=== PATIENT | male | born 1955 | race Caucasian/White ===

== ENCOUNTER 2022-08-21 18:40 | Inpatient (IN) | payer MEDICARE ==
[~2022-08-21] VITALS: Ht 182.9 cm; Wt 99.0 kg
[2022-08-21 20:57] VITALS: BP 126/75
[2022-08-22 03:31] VITALS: BP 102/64
[2022-08-22 05:46] LABS: HEMATOCRIT 36.9 % (39.0-50.0); IMMATURE GRANULOCYTES 0.1 % (0.0-5.0); MEAN CELL VOLUME 101.1 fL CALC (80.0-100.0); MEAN CORPUSCULAR HGB 35.6 pG CALC (26.0-32.0); MEAN CORPUSCULAR HGB CONC 35.2 g/dL CAL (32.0-36.0); NEUT# 3.91 thou/uL (1.82-7.42); RED BLOOD COUNT 3.65 mill/uL (4.70-6.10); RED CELL DISTRI WIDTH 13.2 % (11.5-15.5)
[2022-08-22 06:10] LABS: ALKALINE PHOSPHATASE 52 u/l (38-126); ANION GAP 12 (6-22 (CALC)); BILIRUBIN, TOTAL 1.2 mg/dL (0.0-1.4); BUN 19 mg/dL (8-23); BUN/CREATININE RATIO 27 (12-20 (CALC)); CARBON DIOXIDE 30 mmol/l (22-30); CHLORIDE 102 mmol/l (95-108); CREATININE 0.7 mg/dL (0.7-1.3); GFR FOR AFR.AMER. > 60 ML/MIN (>=60 (CALC)); GFR OTHER RACES > 60 ML/MIN (>=60 (CALC)); POTASSIUM 3.2 mmol/l (3.5-5.1); SGOT/AST 27 u/l (19-48); SODIUM 141 mmol/l (137-146); TOTAL PROTEIN 6.3 g/dL (6.3-8.2)
[2022-08-22 06:35] VITALS: BP 102/58
[2022-08-22] MEDS ORDERED: AMARYL4 MG PO (13:36)
[2022-08-22] MEDS ORDERED: XARELTO20 MG PO (13:37)
[2022-08-22] MEDS ORDERED: METFORMIN HYD1000 MG PO (13:38)
[2022-08-22] MEDS ORDERED: TOPROL XL50 MG PO (13:40)
[2022-08-22] MEDS ORDERED: NORVASC PO (13:41)
[2022-08-22] MEDS ORDERED: LIPITOR40 M1 PO (13:42)
[2022-08-22] MEDS ORDERED: LYRICA150 MG PO (13:43)
[2022-08-22] MEDS ORDERED: JARDIANCE25 MG PO (13:44)
[2022-08-22] MEDS ORDERED: LISINOP/HCTZ1 TA2 PO (13:45)
[2022-08-22] MEDS ORDERED: HYDROCO/APAP1 TA9 PO (13:47)
[2022-08-22 14:37] VITALS: BP 119/93
[2022-08-22 19:03] VITALS: BP 138/95
[2022-08-23 03:43] VITALS: BP 98/66
[2022-08-23 06:07] LABS: HEMATOCRIT 37.4 % (39.0-50.0); HEMOGLOBIN 13.2 g/dl (14.0-18.0); MEAN CELL VOLUME 100.8 fL CALC (80.0-100.0); MEAN CORPUSCULAR HGB 35.6 pG CALC (26.0-32.0); MEAN CORPUSCULAR HGB CONC 35.3 g/dL CAL (32.0-36.0); RED BLOOD COUNT 3.71 mill/uL (4.70-6.10)
[2022-08-23 06:17] VITALS: BP 112/74
[2022-08-23 06:22] LABS: ALKALINE PHOSPHATASE 67 u/l (38-126); ANION GAP 11 (6-22 (CALC)); BILIRUBIN, TOTAL 0.9 mg/dL (0.0-1.4); BUN 17 mg/dL (8-23); BUN/CREATININE RATIO 22 (12-20 (CALC)); CARBON DIOXIDE 30 mmol/l (22-30); CHLORIDE 105 mmol/l (95-108); CREATININE 0.8 mg/dL (0.7-1.3); GFR FOR AFR.AMER. > 60 ML/MIN (>=60 (CALC)); GFR OTHER RACES > 60 ML/MIN (>=60 (CALC)); POTASSIUM 3.7 mmol/l (3.5-5.1); SGOT/AST 24 u/l (19-48); SODIUM 141 mmol/l (137-146); TOTAL PROTEIN 6.3 g/dL (6.3-8.2)
[2022-08-23 15:14] VITALS: BP 102/71
[2022-08-23 16:00] VITALS: BP 102/71
[2022-08-23 19:00] VITALS: BP 124/75
[2022-08-23 19:28] VITALS: BP 124/75
[2022-08-24 03:54] VITALS: BP 117/73
[2022-08-24 07:53] VITALS: BP 106/73
[2022-08-24 15:51] VITALS: BP 133/80
[2022-08-24 18:26] VITALS: BP 122/73
[2022-08-25 04:06] VITALS: BP 101/51
[2022-08-25 05:13] LABS: HEMATOCRIT 35.8 % (39.0-50.0); HEMOGLOBIN 12.3 g/dl (14.0-18.0); IMMATURE GRANULOCYTES 0.2 % (0.0-5.0); MEAN CELL VOLUME 101.1 fL CALC (80.0-100.0); MEAN CORPUSCULAR HGB 34.7 pG CALC (26.0-32.0); MEAN CORPUSCULAR HGB CONC 34.4 g/dL CAL (32.0-36.0); NEUT# 3.48 thou/uL (1.82-7.42); RED BLOOD COUNT 3.54 mill/uL (4.70-6.10); RED CELL DISTRI WIDTH 13.1 % (11.5-15.5)
[2022-08-25 05:45] LABS: ANION GAP 8 (6-22 (CALC)); BUN 11 mg/dL (8-23); BUN/CREATININE RATIO 17 (12-20 (CALC)); CARBON DIOXIDE 28 mmol/l (22-30); CHLORIDE 108 mmol/l (95-108); CREATININE 0.6 mg/dL (0.7-1.3); GFR FOR AFR.AMER. > 60 ML/MIN (>=60 (CALC)); GFR OTHER RACES > 60 ML/MIN (>=60 (CALC)); MAGNESIUM 1.8 mg/dL (1.6-2.3); POTASSIUM 3.6 mmol/l (3.5-5.1); SODIUM 140 mmol/l (137-146)
[2022-08-25 06:15] VITALS: BP 108/59
[2022-08-25 14:36] VITALS: BP 109/68
[2022-08-25 18:57] VITALS: BP 132/73
[2022-08-26] VITALS (11 sets, daily range): BP systolic 107–164; BP diastolic 58–91
[2022-08-26 04:02] LABS: HEMATOCRIT 34.4 % (39.0-50.0); IMMATURE GRANULOCYTES 0.6 % (0.0-5.0); MEAN CELL VOLUME 100.9 fL CALC (80.0-100.0); MEAN CORPUSCULAR HGB 35.2 pG CALC (26.0-32.0); MEAN CORPUSCULAR HGB CONC 34.9 g/dL CAL (32.0-36.0); NEUT# 2.52 thou/uL (1.82-7.42); RED BLOOD COUNT 3.41 mill/uL (4.70-6.10); RED CELL DISTRI WIDTH 12.9 % (11.5-15.5)
[2022-08-26 04:18] LABS: ALBUMIN 3.7 g/dL (3.2-5.0); ALKALINE PHOSPHATASE 74 u/l (38-126); ANION GAP 8 (6-22 (CALC)); BUN 11 mg/dL (8-23); BUN/CREATININE RATIO 17 (12-20 (CALC)); CARBON DIOXIDE 28 mmol/l (22-30); CHLORIDE 107 mmol/l (95-108); CREATININE 0.7 mg/dL (0.7-1.3); GFR FOR AFR.AMER. > 60 ML/MIN (>=60 (CALC)); GFR OTHER RACES > 60 ML/MIN (>=60 (CALC)); POTASSIUM 3.4 mmol/l (3.5-5.1); SGOT/AST 24 u/l (19-48); SODIUM 140 mmol/l (137-146); TOTAL PROTEIN 6.3 g/dL (6.3-8.2)
[2022-08-26 04:19] LABS: BILIRUBIN, TOTAL 0.5 mg/dL (0.0-1.4)
[2022-08-27 04:30] VITALS: BP 140/86
[2022-08-27 05:55] LABS: HEMATOCRIT 34.4 % (39.0-50.0); HEMOGLOBIN 11.8 g/dl (14.0-18.0); IMMATURE GRANULOCYTES 0.2 % (0.0-5.0); MEAN CELL VOLUME 101.5 fL CALC (80.0-100.0); MEAN CORPUSCULAR HGB 34.8 pG CALC (26.0-32.0); MEAN CORPUSCULAR HGB CONC 34.3 g/dL CAL (32.0-36.0); NEUT# 3.5 thou/uL (1.82-7.42); RED BLOOD COUNT 3.39 mill/uL (4.70-6.10); RED CELL DISTRI WIDTH 13.3 % (11.5-15.5)
[2022-08-27 06:07] LABS: ALBUMIN 3.5 g/dL (3.2-5.0); ALKALINE PHOSPHATASE 55 u/l (38-126); ANION GAP 9 (6-22 (CALC)); BILIRUBIN, TOTAL 0.7 mg/dL (0.0-1.4); BUN 6 mg/dL (8-23); BUN/CREATININE RATIO 11 (12-20 (CALC)); CARBON DIOXIDE 26 mmol/l (22-30); CHLORIDE 111 mmol/l (95-108); CREATININE 0.6 mg/dL (0.7-1.3); GFR FOR AFR.AMER. > 60 ML/MIN (>=60 (CALC)); GFR OTHER RACES > 60 ML/MIN (>=60 (CALC)); POTASSIUM 3.2 mmol/l (3.5-5.1); SGOT/AST 26 u/l (19-48); SODIUM 142 mmol/l (137-146); TOTAL PROTEIN 6.1 g/dL (6.3-8.2)
[2022-08-27 06:35] VITALS: BP 140/86
[2022-08-27 14:36] VITALS: BP 138/74
[2022-08-27 19:17] VITALS: BP 141/95
[2022-08-27 23:46] VITALS: BP 128/73
[2022-08-28 03:39] VITALS: BP 140/81
[2022-08-28 03:42] LABS: HEMATOCRIT 33.5 % (39.0-50.0); HEMOGLOBIN 11.7 g/dl (14.0-18.0); IMMATURE GRANULOCYTES 0.3 % (0.0-5.0); MEAN CELL VOLUME 101.2 fL CALC (80.0-100.0); MEAN CORPUSCULAR HGB 35.3 pG CALC (26.0-32.0); MEAN CORPUSCULAR HGB CONC 34.9 g/dL CAL (32.0-36.0); NEUT# 3.36 thou/uL (1.82-7.42); RED BLOOD COUNT 3.31 mill/uL (4.70-6.10); RED CELL DISTRI WIDTH 13.3 % (11.5-15.5)
[2022-08-28 04:02] LABS: ALBUMIN 3.6 g/dL (3.2-5.0); ALKALINE PHOSPHATASE 61 u/l (38-126); ANION GAP 10 (6-22 (CALC)); BILIRUBIN, TOTAL 0.6 mg/dL (0.0-1.4); BUN 7 mg/dL (8-23); BUN/CREATININE RATIO 12 (12-20 (CALC)); CARBON DIOXIDE 28 mmol/l (22-30); CHLORIDE 109 mmol/l (95-108); CREATININE 0.6 mg/dL (0.7-1.3); GFR FOR AFR.AMER. > 60 ML/MIN (>=60 (CALC)); GFR OTHER RACES > 60 ML/MIN (>=60 (CALC)); POTASSIUM 3.3 mmol/l (3.5-5.1); SGOT/AST 26 u/l (19-48); SODIUM 144 mmol/l (137-146); TOTAL PROTEIN 6.2 g/dL (6.3-8.2)
[2022-08-28 07:02] VITALS: BP 158/93
[2022-08-28] MEDS ORDERED: HYDROCO/APAP1 TA9 PO (10:18)
[2022-08-28] MEDS ORDERED: VIBRAMYCIN100 M2 PO (10:19)
[2022-08-28 10:43] VITALS: BP 133/86
== END 2022-08-28 13:20 | disposition home or self-care (01) | DRG 629 ==
LOC: MS2 18:40
PROVIDERS: Internal Medicine; Nurse Practitioner Family; ADMIT Internal Medicine; ATTEND Internal Medicine
PROC: 0QBP0ZZ Excision of Left Metatarsal, Open Approach (ICD-10-PCS; principal; 2022-08-26)
PROC: 0QBP0ZZ Excision of Left Metatarsal, Open Approach (ICD-10-PCS; 2022-08-26)
PROC: 0J9R0ZZ Drainage of Left Foot Subcutaneous Tissue and Fascia, Open Approach (ICD-10-PCS; 2022-08-26)
DX: E11.621 Type 2 diabetes mellitus with foot ulcer (principal); I48.19 Other persistent atrial fibrillation; L03.116 Cellulitis of left lower limb; L97.428 Non-pressure chronic ulcer of left heel and midfoot with other specified severity; L02.612 Cutaneous abscess of left foot; E11.628 Type 2 diabetes mellitus with other skin complications; E11.610 Type 2 diabetes mellitus with diabetic neuropathic arthropathy; E11.42 Type 2 diabetes mellitus with diabetic polyneuropathy; I10 Essential (primary) hypertension; J44.9 Chronic obstructive pulmonary disease, unspecified; I49.5 Sick sinus syndrome; G47.33 Obstructive sleep apnea (adult) (pediatric); E78.5 Hyperlipidemia, unspecified; B95.61 Methicillin susceptible Staphylococcus aureus infection as the cause of diseases classified elsewhere; Z95.0 Presence of cardiac pacemaker; Z79.01 Long term (current) use of anticoagulants; Z79.84 Long term (current) use of oral hypoglycemic drugs; Z20.822 Contact with and (suspected) exposure to COVID-19
CPT/HCPCS: J0131; J0692; J1650; J2060; Q9967

== ENCOUNTER 2022-11-17 11:00 | Day surgery (SDC) | payer MEDICARE ==
[~2022-11-17] VITALS: Ht 182.9 cm; Wt 95.3 kg
[~2022-11-17 11:00] MED LIST: AMARYL4 MG PO; HYDROCO/APAP1 TA9 PO; JARDIANCE25 MG PO; LIPITOR40 M1 PO; LISINOP/HCTZ1 TA2 PO; LYRICA150 MG PO; METFORMIN HYD1000 MG PO; NORVASC PO; TOPROL XL50 MG PO; VIBRAMYCIN100 M2 PO; XARELTO20 MG PO
[2022-11-17 14:51] VITALS: BP 126/86
== END 2022-11-17 14:35 | disposition home or self-care (01) ==
LOC: ENDO 11:00 → ORM 16:05
PROVIDERS: ATTEND Internal Medicine Gastroenterology
PROC: 0DJD8ZZ Inspection of Lower Intestinal Tract, Via Natural or Artificial Opening Endoscopic (ICD-10-PCS; principal; 2022-11-17)
DX: Z12.11 Encounter for screening for malignant neoplasm of colon (principal); K64.8 Other hemorrhoids; I10 Essential (primary) hypertension; E11.42 Type 2 diabetes mellitus with diabetic polyneuropathy; I48.19 Other persistent atrial fibrillation; E78.5 Hyperlipidemia, unspecified; G47.33 Obstructive sleep apnea (adult) (pediatric); Z79.84 Long term (current) use of oral hypoglycemic drugs; Z95.0 Presence of cardiac pacemaker; Z79.01 Long term (current) use of anticoagulants; Z86.010 Personal history of colon polyps

== ENCOUNTER 2024-04-18 12:22 | Inpatient (IN) | payer MEDICARE ==
[~2024-04-18] VITALS: Ht 182.9 cm; Wt 101.0 kg
[~2024-04-18 12:22] MED LIST changes: -AMARYL4 MG PO; +CARTIA XT180 MG PO; +CIALIS5 MG PO; +ERTAPENEM1 G1 IV; +GLIMEPIRIDE4 MG PO; +ISORDIL10 MG PO; +KEFLEX500 MG PO; +LEVOFLOXAC500 MG/101 IV; +LEVOFLOXACIN750 MG PO; -LISINOP/HCTZ1 TA2 PO; +LISINOP/HCTZ1 TAB PO; +LYRICA150 M1 PO; +MUPIROCIN2 % EX; +PERCOCET 10/31 COMBO PO; +PERCOCET 5/325M1 TAB PO; +TAMSULOSIN HCL0.4 MG PO; +TOPROL XL100 MG PO; -TOPROL XL50 MG PO
[2024-04-18 12:54] VITALS: BP 134/95
[2024-04-18 13:34] LABS: BASO% 0.3 % (0-3); EOS% 0.3 % (0-8); HEMATOCRIT 40.9 % (39.0-50.0); HEMOGLOBIN 13.5 g/dl (14.0-18.0); IMMATURE GRANULOCYTES 0.2 % (0.0-5.0); LYMPH% 21.8 % (15-41); MEAN CELL VOLUME 100.2 fL CALC (80.0-100.0); MEAN CORPUSCULAR HGB 33.1 pG CALC (26.0-32.0); MONO% 7.2 % (2-13); NEUT# 6.15 thou/uL (1.82-7.42); NEUT% 70.2 % (42-76); RED BLOOD COUNT 4.08 mill/uL (4.70-6.10); RED CELL DISTRI WIDTH 13.2 % (11.5-15.5)
[2024-04-18] MEDS ORDERED: DEXTROSE 250 ML IV PRN (13:45)
[2024-04-18] MEDS ORDERED: ALUM & MAG HYDROX-SIMETHICONE 30 ML PO PRN (13:50)
[2024-04-18] MEDS ORDERED: MAGNESIUM HYDROXIDE 30 ML UDC PO PRN (13:50)
[2024-04-18] MEDS ORDERED: LORazepam 0.5 MG/TAB PO PRN (13:50)
[2024-04-18] MEDS ORDERED: ACETAMINOPHEN 325 MG/TAB PO PRN (13:50)
[2024-04-18 13:58] LABS: CREATININE 0.7 mg/dL (0.7-1.3); POTASSIUM 3.5 mmol/l (3.5-5.1)
[2024-04-18 14:30] VITALS: BP 130/81
[2024-04-18] MEDS ORDERED: CEFEPIME HYDROCHLORIDE 2 GM in SODIUM CHLORIDE 0.9% 100 ML IV SCH (14:30)
[2024-04-18] MEDS ORDERED: METOPROLOL SUCCINATE 100 MG/TAB PO SCH (14:30)
[2024-04-18] MEDS ORDERED: GLIMEPIRIDE PO SCH (14:30)
[2024-04-18] MEDS ORDERED: LISINOPRIL 10 MG/TAB PO SCH (14:30)
[2024-04-18] MEDS ORDERED: DILTIAZEM HCl COATED BEADS 180 MG/CAP PO SCH (15:00)
[2024-04-18] MEDS ORDERED: VANCOMYCIN HCL 1 GM in SODIUM CHLORIDE 0.9% 250 ML IV SCH (15:00)
[2024-04-18] MEDS ORDERED: METOPROLOL TARTRATE 5 MG/5 ML VIAL IV SCH (16:00)
[2024-04-18] MEDS ORDERED: INSULIN LISPRO 100 UNITS/ML ML SC SCH (17:00)
[2024-04-18 17:25] VITALS: BP 126/70
[2024-04-18] MEDS ORDERED: metFORMIN HYDROCHLORIDE 500 MG/TAB PO SCH (17:30)
[2024-04-18 18:08] LABS: URINE BILIRUBIN - DIPSTICK Negative (NEGATIVE); URINE BLOOD DIPSTICK Negative (NEGATIVE); URINE GLUCOSE - DIPSTICK >=1000 mg/dL (NEGATIVE); URINE KETONE 80 mg/dL (NEGATIVE); URINE LEUK ESTERASE Negative (NEGATIVE); URINE NITRITE - DIPSTICK Negative (Negative); URINE PROTEIN - DIPSTICK Negative (NEG-TRACE); URINE UROBILINOGEN - DIPSTICK 0.2 E.U./dL (0.2)
[2024-04-18 18:11] LABS: URINE COLOR Yellow
[2024-04-18 18:29] VITALS: BP 97/58
[2024-04-18] MEDS ORDERED: TAMSULOSIN HCL 0.4 MG CAP PO SCH (21:00)
[2024-04-18] MEDS ORDERED: PREGABALIN 100 MG/CAP PO SCH (21:00)
[2024-04-18] MEDS ORDERED: ATORVASTATIN CALCIUM 40 MG/TAB PO SCH (21:00)
[2024-04-18] MEDS ORDERED: oxyCODONE 5MG/ ACETAMINOPHEN 325MG TAB PO PRN (22:00)
[2024-04-18 22:49] VITALS: BP 105/62
[2024-04-19] VITALS (11 sets, daily range): BP systolic 103–140; BP diastolic 63–78
[2024-04-19 04:41] LABS: BASO% 0.5 % (0-3); EOS% 3.4 % (0-8); HEMATOCRIT 35.3 % (39.0-50.0); HEMOGLOBIN 11.7 g/dl (14.0-18.0); IMMATURE GRANULOCYTES 0.2 % (0.0-5.0); LYMPH% 36.8 % (15-41); MEAN CELL VOLUME 101.7 fL CALC (80.0-100.0); MEAN CORPUSCULAR HGB 33.7 pG CALC (26.0-32.0); MEAN CORPUSCULAR HGB CONC 33.1 g/dL CAL (32.0-36.0); MONO% 7.5 % (2-13); NEUT# 3.04 thou/uL (1.82-7.42); NEUT% 51.6 % (42-76); RED BLOOD COUNT 3.47 mill/uL (4.70-6.10); RED CELL DISTRI WIDTH 13.3 % (11.5-15.5)
[2024-04-19 04:51] LABS: ALBUMIN 3.4 g/dL (3.2-5.0); BILIRUBIN, TOTAL 0.7 mg/dL (0.2-1.3); CREATININE 0.7 mg/dL (0.7-1.3)
[2024-04-19] MEDS ORDERED: SODIUM CHLORIDE 0.9% 1,000 ML IV ONE ×2 (07:09→08:40)
[2024-04-19] MEDS ORDERED: BUPIVACAINE HCL PF 0.5% 30 ML VIAL ONE (07:25)
[2024-04-19] MEDS ORDERED: SODIUM CHLORIDE 1,000 ML BTL IR ONE (07:26)
[2024-04-19] MEDS ORDERED: STERILE WATER FOR IRRIGATION 1,000 ML BTL IR ONE (07:26)
[2024-04-19] MEDS ORDERED: PREGABALIN 75 MG/CAP PO SCH (09:00)
[2024-04-19] MEDS ORDERED: oxyCODONE 10MG/APAP 325 MG 1 COMBO TAB PO PRN ×2 (09:50)
[2024-04-19] MEDS ORDERED: MAGNESIUM SULFATE HEPTAHYDRATE 50 ML IV SCH (11:00)
[2024-04-19] MEDS ORDERED: POTASSIUM CHLORIDE 20 MEQ/TAB PO SCH (11:00)
[2024-04-19] MEDS ORDERED: PROPOFOL 200 MG/20 ML VIAL IV ONE (12:43)
[2024-04-19] MEDS ORDERED: DiphenhydrAMINE HCL 50 MG/ML SDV IV ONE (12:43)
[2024-04-20] VITALS (11 sets, daily range): BP systolic 99–134; BP diastolic 62–86
[2024-04-20 05:07] LABS: BASO% 0.5 % (0-3); EOS% 3.9 % (0-8); HEMATOCRIT 35.5 % (39.0-50.0); HEMOGLOBIN 11.4 g/dl (14.0-18.0); IMMATURE GRANULOCYTES 0.2 % (0.0-5.0); LYMPH% 33.4 % (15-41); MEAN CELL VOLUME 103.5 fL CALC (80.0-100.0); MEAN CORPUSCULAR HGB 33.2 pG CALC (26.0-32.0); MEAN CORPUSCULAR HGB CONC 32.1 g/dL CAL (32.0-36.0); MONO% 9.1 % (2-13); NEUT# 3.13 thou/uL (1.82-7.42); NEUT% 52.9 % (42-76); RED BLOOD COUNT 3.43 mill/uL (4.70-6.10); RED CELL DISTRI WIDTH 13.5 % (11.5-15.5)
[2024-04-20 05:36] LABS: ALBUMIN 3.2 g/dL (3.2-5.0); BILIRUBIN, TOTAL 0.7 mg/dL (0.2-1.3); CREATININE 0.6 mg/dL (0.7-1.3); MAGNESIUM 1.7 mg/dL (1.6-2.3); POTASSIUM 3.6 mmol/l (3.5-5.1); TOTAL PROTEIN 5.6 g/dL (6.3-8.2)
[2024-04-20] MEDS ORDERED: RIVAROXABAN 20 MG TAB PO SCH (17:30)
[2024-04-21 04:55] VITALS: BP 131/78
[2024-04-21 04:58] LABS: BASO% 0.4 % (0-3); EOS% 3.9 % (0-8); HEMATOCRIT 36.6 % (39.0-50.0); IMMATURE GRANULOCYTES 0.4 % (0.0-5.0); LYMPH% 34.6 % (15-41); MEAN CELL VOLUME 103.4 fL CALC (80.0-100.0); MEAN CORPUSCULAR HGB 33.9 pG CALC (26.0-32.0); MEAN CORPUSCULAR HGB CONC 32.8 g/dL CAL (32.0-36.0); MONO% 9.1 % (2-13); NEUT# 2.89 thou/uL (1.82-7.42); NEUT% 51.6 % (42-76); RED BLOOD COUNT 3.54 mill/uL (4.70-6.10); RED CELL DISTRI WIDTH 13.4 % (11.5-15.5)
[2024-04-21 05:24] LABS: ALBUMIN 3.5 g/dL (3.2-5.0); BILIRUBIN, TOTAL 0.8 mg/dL (0.2-1.3); CREATININE 0.6 mg/dL (0.7-1.3); MAGNESIUM 1.6 mg/dL (1.6-2.3); POTASSIUM 3.5 mmol/l (3.5-5.1)
[2024-04-21 06:15] VITALS: BP 131/78
[2024-04-21 07:00] VITALS: BP 130/76
[2024-04-21] MEDS ORDERED: FLORASTOR250 M1 PO (10:21)
[2024-04-21] MEDS ORDERED: CLEOCIN150 M1 PO (10:21)
[2024-04-21 10:58] VITALS: BP 142/94
== END 2024-04-21 14:27 | disposition home health service (06) | DRG 623 ==
LOC: MS2 12:22
PROVIDERS: Nurse Practitioner Family; ADMIT Internal Medicine; ATTEND Internal Medicine
PROC: 0HXNXZZ Transfer Left Foot Skin, External Approach (ICD-10-PCS; principal; 2024-04-19)
DX: E11.621 Type 2 diabetes mellitus with foot ulcer (principal); I48.20 Chronic atrial fibrillation, unspecified; L97.428 Non-pressure chronic ulcer of left heel and midfoot with other specified severity; L03.116 Cellulitis of left lower limb; L02.612 Cutaneous abscess of left foot; B96.89 Other specified bacterial agents as the cause of diseases classified elsewhere; E11.610 Type 2 diabetes mellitus with diabetic neuropathic arthropathy; E11.42 Type 2 diabetes mellitus with diabetic polyneuropathy; I10 Essential (primary) hypertension; Z79.01 Long term (current) use of anticoagulants; Z95.0 Presence of cardiac pacemaker
CPT/HCPCS: J0692; J3475

== ENCOUNTER 2024-10-10 10:41 | Day surgery (SDC) | payer MEDICARE ==
[~2024-10-10 10:41] MED LIST changes: +AMITRIPTYLINE H25 MG PO; +CLEOCIN150 M1 PO; +FISH OIL1000 M1 PO; +FLORASTOR250 M1 PO; +LORTAB 5/3255 MG PO; +NEXIUM 24HR20 MG PO
[2024-10-10] MEDS ORDERED: FAMOTIDINE 10MG/ML 2ML SDV IV ONE (10:47)
[2024-10-10] MEDS ORDERED: ceFAZolin Sodium 2 GM/VIAL SDV ONE (10:47)
[2024-10-10] MEDS ORDERED: SODIUM CHLORIDE 0.9% 100 ML IV ONE (10:48)
[2024-10-10] MEDS ORDERED: SODIUM CHLORIDE 0.9% 1,000 ML IV ONE (10:48)
[2024-10-10] MEDS ORDERED: BUPIVACAINE HCL PF 0.5% 30 ML VIAL ONE (10:56)
[2024-10-10] MEDS ORDERED: STERILE WATER FOR IRRIGATION 1,000 ML BTL IR ONE (12:58)
[2024-10-10 13:37] VITALS: BP 124/68
[2024-10-10] MEDS ORDERED: LIDOCAINE HCL 2% 2ML SDV IV ONE (15:30)
[2024-10-10] MEDS ORDERED: PROPOFOL 200 MG/20 ML VIAL IV ONE (15:30)
== END 2024-10-10 13:54 | disposition home or self-care (01) ==
LOC: ORM 10:41
PROVIDERS: ATTEND Podiatrist Foot & Ankle Surgery
PROC: 0Y6Y0Z0 Detachment at Left 5th Toe, Complete, Open Approach (ICD-10-PCS; principal; 2024-10-10)
PROC: 0QBP0ZZ Excision of Left Metatarsal, Open Approach (ICD-10-PCS; 2024-10-10)
DX: E11.69 Type 2 diabetes mellitus with other specified complication (principal); M86.172 Other acute osteomyelitis, left ankle and foot; E11.621 Type 2 diabetes mellitus with foot ulcer; L97.522 Non-pressure chronic ulcer of other part of left foot with fat layer exposed; L03.116 Cellulitis of left lower limb; E11.42 Type 2 diabetes mellitus with diabetic polyneuropathy; E11.610 Type 2 diabetes mellitus with diabetic neuropathic arthropathy; I48.91 Unspecified atrial fibrillation; I10 Essential (primary) hypertension; E78.5 Hyperlipidemia, unspecified; Z79.84 Long term (current) use of oral hypoglycemic drugs; Z79.01 Long term (current) use of anticoagulants; Z95.0 Presence of cardiac pacemaker
CPT/HCPCS: J0690

== ENCOUNTER 2024-12-02 11:26 | Inpatient (IN) | payer MEDICARE ==
[~2024-12-02] VITALS: Ht 182.9 cm; Wt 105.0 kg
[2024-12-02] VITALS (17 sets, daily range): BP systolic 118–140; BP diastolic 80–107
[2024-12-02] MEDS ORDERED: VANCOMYCIN HCL 1 GM in SODIUM CHLORIDE 0.9% 500 ML IV ONE (12:50)
[2024-12-02] MEDS ORDERED: CEFEPIME HYDROCHLORIDE 1 GM in SODIUM CHLORIDE 0.9% 50 ML IV ONE (12:50)
[2024-12-02 13:08] LABS: BASO% 0.3 % (0-3); EOS% 2.5 % (0-8); HEMATOCRIT 36.8 % (39.0-50.0); IMMATURE GRANULOCYTES 1.1 % (0.0-5.0); LYMPH% 17.4 % (15-41); MEAN CORPUSCULAR HGB 33.9 pG CALC (26.0-32.0); MEAN CORPUSCULAR HGB CONC 32.6 g/dL CAL (32.0-36.0); MONO% 6.7 % (2-13); NEUT# 6.45 thou/uL (1.82-7.42); RED BLOOD COUNT 3.54 mill/uL (4.70-6.10); RED CELL DISTRI WIDTH 13.1 % (11.5-15.5)
[2024-12-02 13:26] LABS: ALBUMIN 4.2 g/dL (3.2-5.0); BILIRUBIN, TOTAL 0.8 mg/dL (0.2-1.3); CREATININE 0.7 mg/dL (0.7-1.3); POTASSIUM 4.4 mmol/l (3.5-5.1); TOTAL PROTEIN 7.8 g/dL (6.3-8.2)
[2024-12-02 13:38] LABS: C-REACTIVE PROTEIN 13.9 mg/dL (0-0.9)
[2024-12-02] MEDS ORDERED: SODIUM CHLORIDE 0.9% 1,000 ML IV ONE (13:45)
[2024-12-02] MEDS ORDERED: MORPHINE SULFATE 4 MG/ML VIAL IV ONE (13:45)
[2024-12-02] MEDS ORDERED: ACETAMINOPHEN 325 MG/TAB PO PRN (14:15)
[2024-12-02] MEDS ORDERED: SODIUM CHLORIDE 0.9% 1,000 ML IV PRN (14:15)
[2024-12-02] MEDS ORDERED: MAGNESIUM HYDROXIDE 30 ML UDC PO PRN (14:15)
[2024-12-02] MEDS ORDERED: HYDROcodone 5 MG/Acetaminophen 325 MG/COMBO PO PRN (14:25)
[2024-12-02] MEDS ORDERED: PREGABALIN 50 MG/CAP PO SCH (14:45)
[2024-12-02] MEDS ORDERED: METOPROLOL SUCCINATE 100 MG/TAB PO SCH (15:00)
[2024-12-02] MEDS ORDERED: INSULIN LISPRO 100 UNITS/ML ML SC SCH (17:00)
[2024-12-02] MEDS ORDERED: ATORVASTATIN CALCIUM 40 MG/TAB PO SCH (21:00)
[2024-12-02] MEDS ORDERED: VANCOMYCIN HCL 1 GM in SODIUM CHLORIDE 0.9% 250 ML IV SCH (21:00)
[2024-12-02] MEDS ORDERED: ENOXAPARIN SODIUM 100 MG/ML SYR SC SCH (21:00)
[2024-12-02] MEDS ORDERED: CEFEPIME HYDROCHLORIDE 2 GM in SODIUM CHLORIDE 0.9% 100 ML IV SCH (22:00)
[2024-12-03] VITALS (9 sets, daily range): BP systolic 104–143; BP diastolic 61–82
[2024-12-03 04:32] LABS: BASO% 0.4 % (0-3); EOS% 2.7 % (0-8); HEMATOCRIT 34.1 % (39.0-50.0); HEMOGLOBIN 11.2 g/dl (14.0-18.0); IMMATURE GRANULOCYTES 1.2 % (0.0-5.0); LYMPH% 23.9 % (15-41); MEAN CELL VOLUME 105.6 fL CALC (80.0-100.0); MEAN CORPUSCULAR HGB 34.7 pG CALC (26.0-32.0); MEAN CORPUSCULAR HGB CONC 32.8 g/dL CAL (32.0-36.0); MONO% 6.3 % (2-13); NEUT# 6.14 thou/uL (1.82-7.42); NEUT% 65.5 % (42-76); RED BLOOD COUNT 3.23 mill/uL (4.70-6.10); RED CELL DISTRI WIDTH 13.1 % (11.5-15.5)
[2024-12-03 04:46] LABS: ALBUMIN 3.6 g/dL (3.2-5.0); BILIRUBIN, TOTAL 0.5 mg/dL (0.2-1.3); CREATININE 0.7 mg/dL (0.7-1.3); POTASSIUM 3.8 mmol/l (3.5-5.1)
[2024-12-03] MEDS ORDERED: ENOXAPARIN SODIUM 100 MG/ML SYR SC SCH (21:00)
[2024-12-03] MEDS ORDERED: ENOXAPARIN SODIUM 40 MG/0.4 ML SYR SC SCH (21:00)
[2024-12-04] VITALS (8 sets, daily range): BP systolic 114–135; BP diastolic 70–81
[2024-12-04] MEDS ORDERED: HYDROmorphone HCL 2 MG/AMP IV SCH (01:15)
[2024-12-04] MEDS ORDERED: Zaleplon 5 MG/CAP PO SCH ×2 (01:38→21:00)
[2024-12-04] MEDS ORDERED: HYDROmorphone HCL 2 MG/AMP IV PRN (08:15)
[2024-12-04] MEDS ORDERED: ONDANSETRON HCl 4 MG/2 ML SDV IV PRN (08:20)
[2024-12-04] MEDS ORDERED: VANCOMYCIN HCL 1,250 MG in SODIUM CHLORIDE 0.9% 225 ML IV SCH (13:00)
[2024-12-05] VITALS (8 sets, daily range): BP systolic 116–155; BP diastolic 60–88
[2024-12-05 08:22] LABS: BASO% 0.4 % (0-3); EOS% 2.9 % (0-8); HEMATOCRIT 36.8 % (39.0-50.0); HEMOGLOBIN 12.1 g/dl (14.0-18.0); IMMATURE GRANULOCYTES 1.2 % (0.0-5.0); LYMPH% 21.5 % (15-41); MEAN CELL VOLUME 104.2 fL CALC (80.0-100.0); MEAN CORPUSCULAR HGB 34.3 pG CALC (26.0-32.0); MEAN CORPUSCULAR HGB CONC 32.9 g/dL CAL (32.0-36.0); MONO% 5.8 % (2-13); NEUT# 6.08 thou/uL (1.82-7.42); NEUT% 68.2 % (42-76); RED BLOOD COUNT 3.53 mill/uL (4.70-6.10)
[2024-12-05 08:36] LABS: ALBUMIN 3.9 g/dL (3.2-5.0); BILIRUBIN, TOTAL 0.6 mg/dL (0.2-1.3); CREATININE 0.6 mg/dL (0.7-1.3); TOTAL PROTEIN 7.2 g/dL (6.3-8.2)
[2024-12-05] MEDS ORDERED: FAMOTIDINE 10MG/ML 2ML SDV IV ONE (11:26)
[2024-12-05] MEDS ORDERED: SODIUM CHLORIDE 0.9% 1,000 ML IV ONE ×2 (11:36→13:58)
[2024-12-05] MEDS ORDERED: SODIUM CHLORIDE 1,000 ML BTL IR ONE (13:58)
[2024-12-05] MEDS ORDERED: BUPIVACAINE HCL PF 0.5% 30 ML VIAL ONE (13:58)
[2024-12-05] MEDS ORDERED: STERILE WATER FOR IRRIGATION 500 ML BTL IR ONE (13:58)
[2024-12-06] VITALS (10 sets, daily range): BP systolic 90–147; BP diastolic 55–89
[2024-12-06 04:47] LABS: ALBUMIN 3.2 g/dL (3.2-5.0); BILIRUBIN, TOTAL 0.5 mg/dL (0.2-1.3); CREATININE 0.7 mg/dL (0.7-1.3); MAGNESIUM 1.8 mg/dL (1.6-2.3); POTASSIUM 3.9 mmol/l (3.5-5.1); TOTAL PROTEIN 6.2 g/dL (6.3-8.2)
[2024-12-06 04:48] LABS: BASO% 0.4 % (0-3); EOS% 1.4 % (0-8); HEMATOCRIT 32.3 % (39.0-50.0); HEMOGLOBIN 10.8 g/dl (14.0-18.0); LYMPH% 19.8 % (15-41); MEAN CELL VOLUME 104.5 fL CALC (80.0-100.0); MEAN CORPUSCULAR HGB CONC 33.4 g/dL CAL (32.0-36.0); MONO% 7.7 % (2-13); NEUT# 7.2 thou/uL (1.82-7.42); NEUT% 69.7 % (42-76); RED BLOOD COUNT 3.09 mill/uL (4.70-6.10)
[2024-12-06] MEDS ORDERED: EPINEPHrine HCL 1 MG/ML AMP IV ONE (08:00)
[2024-12-06] MEDS ORDERED: LIDOCAINE HCL 2% 2ML SDV IV ONE (08:00)
[2024-12-06] MEDS ORDERED: PROPOFOL 200 MG/20 ML VIAL IV ONE (08:00)
[2024-12-06] MEDS ORDERED: VANCOMYCIN HCL 1 GM in SODIUM CHLORIDE 0.9% 250 ML IV SCH (13:00)
[2024-12-06] MEDS ORDERED: SODIUM CHLORIDE 0.9% 250 ML IV ONE (13:32)
[2024-12-07] VITALS (10 sets, daily range): BP systolic 111–143; BP diastolic 54–91
[2024-12-07 05:24] LABS: BASO% 0.7 % (0-3); EOS% 3.5 % (0-8); HEMOGLOBIN 10.6 g/dl (14.0-18.0); IMMATURE GRANULOCYTES 1.3 % (0.0-5.0); LYMPH% 27.9 % (15-41); MEAN CELL VOLUME 104.9 fL CALC (80.0-100.0); MEAN CORPUSCULAR HGB 34.8 pG CALC (26.0-32.0); MEAN CORPUSCULAR HGB CONC 33.1 g/dL CAL (32.0-36.0); MONO% 9.3 % (2-13); NEUT# 4.11 thou/uL (1.82-7.42); NEUT% 57.3 % (42-76); RED BLOOD COUNT 3.05 mill/uL (4.70-6.10); RED CELL DISTRI WIDTH 13.4 % (11.5-15.5)
[2024-12-07 05:43] LABS: ALBUMIN 3.2 g/dL (3.2-5.0); BILIRUBIN, TOTAL 0.5 mg/dL (0.2-1.3); CREATININE 0.6 mg/dL (0.7-1.3); MAGNESIUM 1.9 mg/dL (1.6-2.3); POTASSIUM 3.6 mmol/l (3.5-5.1); TOTAL PROTEIN 6.1 g/dL (6.3-8.2)
[2024-12-07] MEDS ORDERED: cefTRIAXone SODIUM 2 GM in SODIUM CHLORIDE 0.9% 100 ML IV SCH (11:00)
[2024-12-07] MEDS ORDERED: HYDROcodone/Acetaminophen 1 COMBO TAB PO SCH (12:00)
[2024-12-08] VITALS (11 sets, daily range): BP systolic 126–143; BP diastolic 64–90
[2024-12-08 06:08] LABS: BASO% 0.7 % (0-3); EOS% 3.1 % (0-8); HEMATOCRIT 31.6 % (39.0-50.0); HEMOGLOBIN 10.5 g/dl (14.0-18.0); LYMPH% 25.3 % (15-41); MEAN CELL VOLUME 104.3 fL CALC (80.0-100.0); MEAN CORPUSCULAR HGB 34.7 pG CALC (26.0-32.0); MEAN CORPUSCULAR HGB CONC 33.2 g/dL CAL (32.0-36.0); MONO% 9.2 % (2-13); NEUT# 4.44 thou/uL (1.82-7.42); NEUT% 60.7 % (42-76); RED BLOOD COUNT 3.03 mill/uL (4.70-6.10); RED CELL DISTRI WIDTH 13.3 % (11.5-15.5)
[2024-12-08 06:31] LABS: ALBUMIN 3.3 g/dL (3.2-5.0); BILIRUBIN, TOTAL 0.4 mg/dL (0.2-1.3); CREATININE 0.6 mg/dL (0.7-1.3); MAGNESIUM 1.8 mg/dL (1.6-2.3); POTASSIUM 3.8 mmol/l (3.5-5.1); TOTAL PROTEIN 6.1 g/dL (6.3-8.2)
[2024-12-08] MEDS ORDERED: BENZOCAINE-MENTHOL (MOUTH-THRO 1 LOZ LOZ PO PRN (08:05)
[2024-12-09 03:08] VITALS: BP 145/90
[2024-12-09 05:24] LABS: BASO% 0.6 % (0-3); EOS% 2.6 % (0-8); HEMATOCRIT 32.9 % (39.0-50.0); HEMOGLOBIN 10.6 g/dl (14.0-18.0); IMMATURE GRANULOCYTES 1.5 % (0.0-5.0); LYMPH% 29.1 % (15-41); MEAN CELL VOLUME 104.1 fL CALC (80.0-100.0); MEAN CORPUSCULAR HGB 33.5 pG CALC (26.0-32.0); MEAN CORPUSCULAR HGB CONC 32.2 g/dL CAL (32.0-36.0); MONO% 8.7 % (2-13); NEUT# 3.74 thou/uL (1.82-7.42); NEUT% 57.5 % (42-76); RED BLOOD COUNT 3.16 mill/uL (4.70-6.10); RED CELL DISTRI WIDTH 13.4 % (11.5-15.5)
[2024-12-09 05:45] LABS: ALBUMIN 3.3 g/dL (3.2-5.0); CREATININE 0.5 mg/dL (0.7-1.3); MAGNESIUM 1.9 mg/dL (1.6-2.3); POTASSIUM 3.5 mmol/l (3.5-5.1); TOTAL PROTEIN 6.1 g/dL (6.3-8.2)
[2024-12-09 05:46] VITALS: BP 144/88
[2024-12-09 05:58] LABS: BILIRUBIN, TOTAL 0.6 mg/dL (0.2-1.3)
[2024-12-09 06:10] VITALS: BP 145/90
[2024-12-09 11:07] VITALS: BP 139/71
[2024-12-09] MEDS ORDERED: CEFTRIAXONE2 GM IV (12:33)
[2024-12-09] MEDS ORDERED: POLYMYXIN B TRIMETHOPRIM OS SCH (13:00)
[2024-12-09 13:21] VITALS: BP 135/80
[2024-12-09] MEDS ORDERED: HYDROcodone/Acetaminophen 1 COMBO TAB PO SCH (14:00)
[2024-12-09 18:21] VITALS: BP 154/90
[2024-12-10] VITALS (13 sets, daily range): BP systolic 143–159; BP diastolic 67–104
[2024-12-10 05:38] LABS: BASO% 0.4 % (0-3); EOS% 2.8 % (0-8); HEMATOCRIT 32.7 % (39.0-50.0); HEMOGLOBIN 10.7 g/dl (14.0-18.0); IMMATURE GRANULOCYTES 0.7 % (0.0-5.0); LYMPH% 35.8 % (15-41); MEAN CELL VOLUME 104.8 fL CALC (80.0-100.0); MEAN CORPUSCULAR HGB 34.3 pG CALC (26.0-32.0); MEAN CORPUSCULAR HGB CONC 32.7 g/dL CAL (32.0-36.0); MONO% 8.4 % (2-13); NEUT# 3.54 thou/uL (1.82-7.42); NEUT% 51.9 % (42-76); RED BLOOD COUNT 3.12 mill/uL (4.70-6.10); RED CELL DISTRI WIDTH 13.8 % (11.5-15.5)
[2024-12-10 05:53] LABS: ALBUMIN 3.4 g/dL (3.2-5.0); BILIRUBIN, TOTAL 0.5 mg/dL (0.2-1.3); CREATININE 0.6 mg/dL (0.7-1.3); MAGNESIUM 1.9 mg/dL (1.6-2.3); POTASSIUM 3.7 mmol/l (3.5-5.1); TOTAL PROTEIN 6.4 g/dL (6.3-8.2)
[2024-12-11] VITALS (9 sets, daily range): BP systolic 140–157; BP diastolic 68–92
[2024-12-11 05:21] LABS: BASO% 0.7 % (0-3); EOS% 3.1 % (0-8); HEMATOCRIT 33.7 % (39.0-50.0); HEMOGLOBIN 11.1 g/dl (14.0-18.0); IMMATURE GRANULOCYTES 0.3 % (0.0-5.0); LYMPH% 30.4 % (15-41); MEAN CORPUSCULAR HGB 34.6 pG CALC (26.0-32.0); MEAN CORPUSCULAR HGB CONC 32.9 g/dL CAL (32.0-36.0); MONO% 8.9 % (2-13); NEUT# 3.42 thou/uL (1.82-7.42); NEUT% 56.6 % (42-76); RED BLOOD COUNT 3.21 mill/uL (4.70-6.10); RED CELL DISTRI WIDTH 14.2 % (11.5-15.5)
[2024-12-11 05:31] LABS: ALBUMIN 3.5 g/dL (3.2-5.0); BILIRUBIN, TOTAL 0.6 mg/dL (0.2-1.3); CREATININE 0.6 mg/dL (0.7-1.3); MAGNESIUM 2.1 mg/dL (1.6-2.3); POTASSIUM 3.8 mmol/l (3.5-5.1); TOTAL PROTEIN 6.4 g/dL (6.3-8.2)
[2024-12-11] MEDS ORDERED: oxyCODONE HCL 5 MG/TAB PO PRN (08:20)
[2024-12-11] MEDS ORDERED: ACETAMINOPHEN 500 MG TAB PO SCH (14:00)
[2024-12-12 02:24] VITALS: BP 141/79
[2024-12-12 05:01] LABS: BASO% 0.6 % (0-3); EOS% 2.6 % (0-8); HEMATOCRIT 33.3 % (39.0-50.0); HEMOGLOBIN 10.9 g/dl (14.0-18.0); IMMATURE GRANULOCYTES 0.3 % (0.0-5.0); LYMPH% 30.2 % (15-41); MEAN CELL VOLUME 106.1 fL CALC (80.0-100.0); MEAN CORPUSCULAR HGB 34.7 pG CALC (26.0-32.0); MEAN CORPUSCULAR HGB CONC 32.7 g/dL CAL (32.0-36.0); MONO% 9.7 % (2-13); NEUT# 3.99 thou/uL (1.82-7.42); NEUT% 56.6 % (42-76); RED BLOOD COUNT 3.14 mill/uL (4.70-6.10); RED CELL DISTRI WIDTH 14.4 % (11.5-15.5)
[2024-12-12 05:30] LABS: ALBUMIN 3.5 g/dL (3.2-5.0); BILIRUBIN, TOTAL 0.5 mg/dL (0.2-1.3); CREATININE 0.6 mg/dL (0.7-1.3); MAGNESIUM 2.1 mg/dL (1.6-2.3); POTASSIUM 3.8 mmol/l (3.5-5.1); TOTAL PROTEIN 6.3 g/dL (6.3-8.2)
[2024-12-12 05:37] VITALS: BP 141/79
[2024-12-12 06:54] VITALS: BP 139/90
[2024-12-12 09:42] VITALS: BP 168/90
[2024-12-12 11:03] VITALS: BP 168/90
[2024-12-12] MEDS ORDERED: LORTAB 1010 MG PO (11:05)
[2024-12-12] MEDS ORDERED: MOXIFLOXACIN Hydrochloride 3 ML BTL OS SCH (12:00)
== END 2024-12-12 15:37 | disposition home health service (06) | DRG 464 ==
LOC: ED 11:26 → ED-I 13:10 → ED 13:38 → MS2 13:39
PROVIDERS: Internal Medicine; Nurse Practitioner; Nurse Practitioner Family; ADMIT Internal Medicine; ATTEND Internal Medicine
PROC: 0QBP0ZZ Excision of Left Metatarsal, Open Approach (ICD-10-PCS; principal; 2024-12-05)
PROC: 0JBR0ZZ Excision of Left Foot Subcutaneous Tissue and Fascia, Open Approach (ICD-10-PCS; 2024-12-05)
PROC: 02HV33Z Insertion of Infusion Device into Superior Vena Cava, Percutaneous Approach (ICD-10-PCS; 2024-12-07)
PROC: B518ZZA Fluoroscopy of Superior Vena Cava, Guidance (ICD-10-PCS; 2024-12-07)
DX: T87.81 Dehiscence of amputation stump (principal); I48.20 Chronic atrial fibrillation, unspecified; L03.116 Cellulitis of left lower limb; M86.8X7 Other osteomyelitis, ankle and foot; L02.612 Cutaneous abscess of left foot; B95.61 Methicillin susceptible Staphylococcus aureus infection as the cause of diseases classified elsewhere; E11.69 Type 2 diabetes mellitus with other specified complication; E11.40 Type 2 diabetes mellitus with diabetic neuropathy, unspecified; E11.610 Type 2 diabetes mellitus with diabetic neuropathic arthropathy; I10 Essential (primary) hypertension; H10.9 Unspecified conjunctivitis; Y83.6 Removal of other organ (partial) (total) as the cause of abnormal reaction of the patient, or of later complication, without mention of misadventure at the time of the procedure; Z89.422 Acquired absence of other left toe(s); Z79.84 Long term (current) use of oral hypoglycemic drugs; Z95.0 Presence of cardiac pacemaker; Z79.01 Long term (current) use of anticoagulants
CPT/HCPCS: J0692; J0696; J1171; J1650; J1815; J2405; J3370